=== PATIENT | female | born 1965 | race African-American/Black ===

== ENCOUNTER 2019-10-31 18:02 | Emergency (ER) | payer MEDICAID, OTHER ==
[~2019-10-31] VITALS: Ht 160 cm; Wt 86.2 kg
[~2019-10-31 18:02] MED LIST: MOBIC7.5 MG ORAL; NKM; OMEPRAZOLE20 M2 ORAL; ZOFRAN4 MG ORAL
[2019-10-31] MEDS ORDERED: Aspirin Baby 81mg ORAL ONE (18:15)
--- NOTE | 2019-10-31 18:30 | Emergency Room Report ---
History of Present Illness General Chief Complaint: Chest Pain Source: Patient Present Illness HPI 53-year-old female with remote history of breast cancer status post mastectomy approximately 8 years ago here with shortness of breath for 11 days. Patient says that she went to another emergency department about 10 days ago and had a chest x-ray" and it showed some fluid in my lungs. They gave me some antibio tics." Patient says that her symptoms have persisted. No fevers, chills, cough, chest pain, palpitations, back pain, abdominal pain, nausea, vomiting, diaphoresis, dysuria, diarrhea. 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 Patient History Last Menstrual Period: none Now: No Nursing Documentation-[facility] Past Medical History: No History, Except For Hx Cancer: Yes - breast cancer Review of Systems All Other Systems: negative except mentioned in HPI Physical Exam Vital Signs Date Time Temp Pulse Resp B/P (MAP) Pulse Ox O2 Delivery O2 Flow Rate FiO2 10/31/19 18:07 98.2 86 20 156/87 (110) 97 Room Air Sp02 EP Interpretation: reviewed, normal General Appearance: no apparent distress, alert, non-toxic Head: normocephalic, atraumatic Eyes: bilateral eye normal inspection, bilateral eye PERRL ENT: hearing grossly normal, normal pharynx, no angioedema, normal voice Neck: full range of motion, supple/symm/no masses Respiratory: chest non-tender, lungs clear, normal breath sounds, speaking full sentences Cardiovascular #1: regular rate, rhythm, no edema Cardiovascular #2: 2+ carotid (R), 2+ carotid (L), 2+ radial (R), 2+ radial (L), 2+ dorsalis pedis (R), 2+ dorsalis pedis (L) Gastrointestinal: normal bowel sounds, non tender, soft, non-distended, no guarding, no rebound Rectal: deferred Genitourinary: normal inspection, no CVA tenderness Musculoskeletal: back normal, normal range of motion, gait/station normal, non- tender Neurologic: alert, motor strength/tone normal, sensory intact, responsive, speech normal Psychiatric: judgement/insight normal, memory normal, mood/affect normal, no suicidal/homicidal ideation Lymphatic: no adenopathy Medical Decision Making Diagnostic Impression: Primary Impression: Pneumonia Additional Impression: Shortness of breath ER Course EKG: NSR, no ischemia, intervals WNL. No ectopy. Rate 80 bpm Rhythm strip: patient monitored for arrhythmias - no malignant dysrhythmias, runs of PVCs, nor pauses noted Wells score for pulmonary embolism: 0. Low risk Chest x-ray: Indication shortness of breath. No cardiomegaly. No bony abnormalities. No free air under the diaphragm. No pleural effusions. Scattered heart borders in the left lower lobe with left lower lobe consolidation Laboratory Tests Test 10/31/19 18:55 White Blood Count 7.4 K/UL (4.8-10.8) Red Blood Count 4.63 M/UL (4.20-5.40) Hemoglobin 12.5 G/DL (12.0-16.0) Hematocrit 37.3 % (37.0-47.0) Mean Corpuscular Volume 81 FL (80-99) Mean Corpuscular Hemoglobin 27.1 PG (27.0-31.0) Mean Corpuscular Hemoglobin Concent 33.6 G/DL (32.0-36.0) Red Cell Distribution Width 14.7 % (11.6-14.8) Platelet Count 250 K/UL (150-450) Mean Platelet Volume 7.3 FL (6.5-10.1) Neutrophils (%) (Auto) 59.8 % (45.0-75.0) Lymphocytes (%) (Auto) 30.1 % (20.0-45.0) Monocytes (%) (Auto) 5.5 % (1.0-10.0) Eosinophils (%) (Auto) 3.5 % (0.0-3.0) H Basophils (%) (Auto) 1.1 % (0.0-2.0) Sodium Level 143 MMOL/L (136-145) Potassium Level 3.8 MMOL/L (3.5-5.1) Chloride Level 105 MMOL/L (98-107) Carbon Dioxide Level 28 MMOL/L (21-32) Anion Gap 11 mmol/L (5-15) Blood Urea Nitrogen 21 mg/dL (7-18) H Creatinine 1.0 MG/DL (0.55-1.30) Estimated Glomerular Filtration Rate > 60 mL/min (>60) Glucose Level 95 MG/DL (74-106) Calcium Level 9.0 MG/DL (8.5-10.1) Total Bilirubin 0.4 MG/DL (0.2-1.0) Aspartate Amino Transferase (AST) 20 U/L (15-37) Alanine Aminotransferase (ALT) 20 U/L (12-78) Alkaline Phosphatase 77 U/L (46-116) Troponin I 0.000 ng/mL (0.000-0.056) Pro-B-Type Natriuretic Peptide 64 pg/mL (0-125) Total Protein 7.9 G/DL (6.4-8.2) Albumin 3.7 G/DL (3.4-5.0) Globulin 4.2 g/dL Albumin/Globulin Ratio 0.9 (1.0-2.7) L 53-year-old female with remote history of breast cancer status post mastectomy 8 years ago, here with mild shortness of breath and dry cough. Patient was h emodynamically stable in the emergency department and had normal vital signs and was afebrile. CBC and CMP were unremarkable. Troponin negative. BNP normal. EKG was unremarkable as well. Patient's chest x-ray however showed obscured heart borders in the region of the left lower lobe with developing left lower lobe infiltrate. Patient says that she has had community-acquired pneumonia in the past and had very similar symptoms at that time. Clinically patient was stable for discharge. She was given a prescription for azithromycin and told to follow-up with her primary care provider or come back to the emergency department if her symptoms worsen. She expressed understanding and was discharged. Last Vital Signs Date Time Temp Pulse Resp B/P (MAP) Pulse Ox O2 Delivery O2 Flow Rate FiO2 10/31/19 18:07 98.2 86 20 156/87 (110) 97 Room Air Disposition: HOME, SELF-CARE Scripts Azithromycin* (ZITHROMAX*) 250 Mg Tablet 250 MG ORAL DAILY, #6 TAB 0 Refills Take two tables once daily for 1 day, then one tablet once daily for 4 days. Prov: Jamal Clarke M.D. 10/31/19 Jamal Clarke M.D. Oct 31, 2019 18:30
--- NOTE | 2019-10-31 18:30 | NUR ---
ED Nurse Note: Patient presents to ER due to left chest pain, patient unable to describe the pain, radiating to left arm, axilla area for the past few day with slight SOB with physical exertion. Patient also c/o back pain. Reports no N/V or cough or fever or chills. Patient awake, alert, oriented x 4. Regular, unlabored breathing noted. Patient able to speak full sentence and denies any swelling on BLE. Patient is not on any meds at this time. HX of right breast CA with mastectomy and left breast reduction. Placed patient on mainframe programmer analyst. Bed in lowest position.
[2019-10-31 19:10] VITALS: BP 133/71
--- NOTE | 2019-10-31 19:10 | NUR ---
Note renea in EDM - 10/31/19 at 1939 by CEDRICK ED Nurse Note: Report given to DEL Paredes. Patient awake, no facial grimacing or guarding noted. IV Vancomycin infusing via left forearm 22g. IV remained intact without redness, swelling.
--- NOTE | 2019-10-31 19:10 | NUR ---
ED Nurse Note: Report received from DEL Berkowitz. Patient is in bed with her eyes closed; does not appear to be in any distress at this time. Vital signs are stable. Will continue to monitor. Safety measures in place.
--- NOTE | 2019-10-31 19:10 | NUR ---
ED Nurse Note: Report given to DEL Paredes. Patient in bed, on apple sorter. No facial grimacing or guarding noted. Bed in lowest position .
[2019-10-31 19:32] LABS: BASOPHILS % (AUTO) 1.1 % (0.0-2.0); EOSINOPHILS % (AUTO) 3.5 % (0.0-3.0); HEMATOCRIT 37.3 % (37.0-47.0); HEMOGLOBIN 12.5 G/DL (12.0-16.0); LYMPHOCYTES % (AUTO) 30.1 % (20.0-45.0); MEAN CORPUSCULAR VOLUME 81 FL (80-99); MONOCYTES % (AUTO) 5.5 % (1.0-10.0); NEUTROPHILS % (AUTO) 59.8 % (45.0-75.0); PLATELET COUNT 250 K/UL (150-450); RED BLOOD COUNT 4.63 M/UL (4.20-5.40); RED CELL DISTRIBUTION WIDTH 14.7 % (11.6-14.8); WHITE BLOOD COUNT 7.4 K/UL (4.8-10.8)
[2019-10-31 19:40] LABS: ANION GAP 11 mmol/L (5-15); BLOOD UREA NITROGEN 21 mg/dL (7-18); CARBON DIOXIDE 28 MMOL/L (21-32); CHLORIDE 105 MMOL/L (98-107); POTASSIUM 3.8 MMOL/L (3.5-5.1); SODIUM 143 MMOL/L (136-145)
[2019-10-31 19:45] LABS: ALANINE AMINOTRANSFERASE 20 U/L (12-78); ALBUMIN 3.7 G/DL (3.4-5.0); ALBUMIN/GLOBULIN RATIO 0.9 (1.0-2.7); ALKALINE PHOSPHATASE 77 U/L (46-116); ASPARTATE AMINO TRANSFERASE 20 U/L (15-37); BILIRUBIN,TOTAL 0.4 MG/DL (0.2-1.0)
[2019-10-31] MEDS ORDERED: ZITHROMAX250 MG ORAL (20:01)
[2019-10-31 20:20] VITALS: BP 108/72
--- NOTE | 2019-10-31 20:20 | NUR ---
ER DISCHARGE NOTE: Patient is cleared to be discharged per ERMD, pt is aox4, on room air, with stable vital signs. pt was given dc and prescription instructions, pt was able to verbalize understanding, pt id band and iv site removed without complications. pt is able to ambulate with steady gait. pt took all belongings.
--- NOTE | 2019-11-01 11:09 | Diagnostic Imaging Report ---
Indication: Chest pain Technique: One view of the chest Comparison: none Findings: Lungs and pleural spaces are clear. Heart size is normal. There is minimal atelectasis at the left lateral lung base Impression: No acute process
--- NOTE | 2019-11-01 17:42 | Cardiology Report ---
APPROVED REPORT EKG Measurement Heart [id number] <Conclusion> Normal sinus rhythm Normal ECG
== END 2019-10-31 20:20 | disposition home or self-care (01) ==
LOC: EMR 18:20
DX: J18.9 Pneumonia, unspecified organism (principal); R06.02 Shortness of breath; Z85.3 Personal history of malignant neoplasm of breast; Z91.040 Latex allergy status; Z90.10 Acquired absence of unspecified breast and nipple
CPT/HCPCS: 36415; 71045; 80053; 83880; 84484; 85025; 93005; Z7502; 99283

== ENCOUNTER 2019-11-14 19:16 | Observation (INO) | payer MEDICAID, OTHER ==
[~2019-11-14] VITALS: Ht 160 cm; Wt 95.0 kg
[~2019-11-14 19:16] MED LIST changes: +ZITHROMAX250 MG ORAL
[2019-11-14 19:20] VITALS: BP 164/85
--- NOTE | 2019-11-14 19:20 | NUR ---
ED Nurse Note: Pt ambulated to ED from home c/o of L sided substernal 08/18 cp with dizziness for several days. Pain radiates to R shoulder. Pt denies N/V at this time. Pt was seen several days ago for the same symptoms, pt is A&Ox4, VSS, pt placed on car inspector, ERMD at bedside, EKG in process
--- NOTE | 2019-11-14 19:55 | Diagnostic Imaging Report ---
EXAM: XR Chest, 1 View CLINICAL HISTORY: CP TECHNIQUE: Frontal view of the chest. COMPARISON: 10/31/2019. FINDINGS: Lungs: The lungs are well aerated. Minimal subsegmental atelectasis at the left lung base. Pleural space: No pleural effusion. No pneumothorax. Heart: Cardiomediastinal silhouette unremarkable. Mediastinum: See above. Bones/joints: Osteopenia. Soft tissues: Surgical clips in the right axilla. IMPRESSION: 1. Minimal subsegmental atelectasis at the left lung base. 2. Osteopenia.
[2019-11-14] MEDS ORDERED: Omnipaque 350 100ml vial INJ PRN (20:00)
--- NOTE | 2019-11-14 20:00 | Emergency Room Report ---
History of Present Illness General Chief Complaint: Chest Pain Source: Patient Present Illness HPI 54-year-old female presents with achy chest pain left-sided radiates to her left upper back, achy in nature no aggravating factors no alleviating factors severity is moderate, constant she does endorse some accompanying shortness of breath, patient states she was recently diagnosed with pneumonia patient present s for evaluation and treatment Allergies: Coded Allergies: LATEX (Verified Allergy, Unknown, 10/31/19) NO KNOWN ALLERGIES (Unverified Allergy, Unknown, 01/02/15) COVID-19 Screening Contact w/high risk pt: No Experienced COVID-19 symptoms?: No 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 COVID-19 Screening: Negative COVID-19 COVID-19 Testing Source: last week Patient History Past Medical History: see triage record Reviewed Nursing Documentation: PMH: Agreed; PSxH: Agreed Nursing Documentation-PMH Hx Cancer: Yes - breast cancer Review of Systems All Other Systems: negative except mentioned in HPI Physical Exam Vital Signs Date Time Temp Pulse Resp B/P (MAP) Pulse Ox O2 Delivery O2 Flow Rate FiO2 11/14/19 19:18 98.1 84 18 164/85 (111) 99 Room Air Sp02 EP Interpretation: reviewed, normal General Appearance: well appearing, no apparent distress, alert Head: normocephalic, atraumatic Eyes: bilateral eye PERRL, bilateral eye EOMI ENT: uvula midline, moist mucus membranes Neck: supple, thyroid normal, supple/symm/no masses Respiratory: lungs clear, no respiratory distress, no retraction, no accessory muscle use Cardiovascular #1: normal peripheral pulses, regular rate, rhythm, no edema, no gallop, no murmur Gastrointestinal: non tender, soft, no guarding, no rebound Musculoskeletal: normal inspection Neurologic: alert, oriented x3 Psychiatric: mood/affect normal Skin: no rash, warm/dry Medical Decision Making Diagnostic Impression: Primary Impression: Chest pain Qualified Codes: R07.9 - Chest pain, unspecified ER Course 54-year-old female history of breast cancer presents with vague chest discomfort differential diagnosis includes ACS pulmonary embolism given history of breast cancer, gastritis Patient already took aspirin prior to coming to the ED patient took 3 baby aspirin's Patient with a negative troponin, CTA negative for acute pulmonary embolism Patient admitted to Dr. Fung Laboratory Tests Test 11/14/19 19:55 White Blood Count 8.7 K/UL (4.8-10.8) Red Blood Count 4.82 M/UL (4.20-5.40) Hemoglobin 13.1 G/DL (12.0-16.0) Hematocrit 38.8 % (37.0-47.0) Mean Corpuscular Volume 80 FL (80-99) Mean Corpuscular Hemoglobin 27.3 PG (27.0-31.0) Mean Corpuscular Hemoglobin Concent 33.9 G/DL (32.0-36.0) Red Cell Distribution Width 14.4 % (11.6-14.8) Platelet Count 282 K/UL (150-450) Mean Platelet Volume 7.3 FL (6.5-10.1) Neutrophils (%) (Auto) 60.7 % (45.0-75.0) Lymphocytes (%) (Auto) 31.0 % (20.0-45.0) Monocytes (%) (Auto) 3.5 % (1.0-10.0) Eosinophils (%) (Auto) 4.1 % (0.0-3.0) H Basophils (%) (Auto) 0.7 % (0.0-2.0) Prothrombin Time 10.4 SEC (9.30-11.50) Prothrombin Time INR 0.9 (0.9-1.1) Activated Partial Thromboplast Time 25 SEC (23-33) Sodium Level 138 MMOL/L (136-145) Potassium Level 3.9 MMOL/L (3.5-5.1) Chloride Level 102 MMOL/L (98-107) Carbon Dioxide Level 31 MMOL/L (21-32) Anion Gap 6 mmol/L (5-15) Blood Urea Nitrogen 18 mg/dL (7-18) Creatinine 1.1 MG/DL (0.55-1.30) Estimated Glomerular Filtration Rate > 60 mL/min (>60) Glucose Level 99 MG/DL (74-106) Calcium Level 9.5 MG/DL (8.5-10.1) Total Bilirubin 0.4 MG/DL (0.2-1.0) Aspartate Amino Transferase (AST) 12 U/L (15-37) L Alanine Aminotransferase (ALT) 24 U/L (12-78) Alkaline Phosphatase 82 U/L (46-116) Troponin I 0.000 ng/mL (0.000-0.056) Pro-B-Type Natriuretic Peptide 68 pg/mL (0-125) Total Protein 7.6 G/DL (6.4-8.2) Albumin 3.8 G/DL (3.4-5.0) Globulin 3.8 g/dL Albumin/Globulin Ratio 1.0 (1.0-2.7) Lipase 144 U/L (73-393) Microbiology Date/Time Source Procedure Growth Status 11/14/19 19:55 Nasopharynx SARS-CoV-2 RdRp Gene Assay - Final Complete EKG Diagnostic Results Troponin ordered: Yes When was troponin ordered?: Nov 14, 2019 - 1928 Rhythm Strip Diag. Results Rhythm Strip Time: 19:59 EP Interpretation: yes Rate: 80 Rhythm: NSR, no PVC's, no ectopy Chest X-Ray Diagnostic Results Chest X-Ray Diagnostic Results : Chest X-Ray Ordered: Yes # of Views/Limited/Complete: 1 View Indication: Chest Pain EP Interpretation: Yes Interpretation: no consolidation, no effusion, no pneumothorax, no acute cardiopulmonary disease Impression: No acute disease Electronically Signed by: Luciano Byers MD CT/MRI/US Diagnostic Results CT/MRI/US Diagnostic Results : Impression Procedure: CTA Chest w Contrast EXAM: CT Angiography Chest With Intravenous Contrast CLINICAL HISTORY: Chest pain. TECHNIQUE: Axial computed tomographic angiography images of the chest with intravenous contrast. CTDI is 51.7 mGy and DLP is 364.6 mGy-cm. One or more of the following dose reduction techniques were used: automated exposure control, adjustment of the mA and/or kV according to patient size, use of iterative reconstruction technique. MIP reconstructed images were created and reviewed. COMPARISON: 11/14/2019. FINDINGS: Pulmonary arteries: No central pulmonary embolism. Aorta: Thoracic aorta is unremarkable. No thoracic aortic aneurysm. Lungs: Evaluation of the right pulmonary parenchyma reveals subsegmental atelectasis posteriorly at the right lung base. Subsegmental atelectasis posteriorly at the left lung base. Subsegmental atelectasis within the lingular region. Minimal areas of scarring at the right lung base. The airways patent. No mass. Pleural space: Unremarkable. No significant effusion. No pneumothorax. Heart: Heart is normal in size. No significant pericardial effusion. No evidence of RV dysfunction. Mediastinum: Probable distal esophagitis. Thyroid: Thyroid gland is unremarkable. Bones/joints: The sternum is unremarkable. No acute fracture. No dislocation. Soft tissues: Right breast prosthesis is noted in place. Lymph nodes: Unremarkable. No enlarged lymph nodes. Liver: Diffuse fatty infiltration of the liver. Adrenals: 0.8 cm probable left adrenal adenoma. Stomach and bowel: Present ingested material in the stomach. Alignment of the thoracic spine is unremarkable. IMPRESSION: 1. No central peripheral pulmonary emboli detected. 2. Presumed subsegmental atelectasis in the lingular region. Dictated By: Azael Daily M.D. Electronically Signed By:Azael Daily M.D. Signed Date/Time11/14/191 CC: Luciano Byers [id number] 0 Last Vital Signs Date Time Temp Pulse Resp B/P (MAP) Pulse Ox O2 Delivery O2 Flow Rate FiO2 11/14/19 19:18 98.1 84 18 164/85 (111) 99 Room Air Disposition: ADMITTED INPATIENT Condition: Stable Luciano Byers MD Nov 14, 2019 20:00
[2019-11-14 20:11] LABS: BASOPHILS % (AUTO) 0.7 % (0.0-2.0); EOSINOPHILS % (AUTO) 4.1 % (0.0-3.0); HEMATOCRIT 38.8 % (37.0-47.0); HEMOGLOBIN 13.1 G/DL (12.0-16.0); MEAN CORPUSCULAR VOLUME 80 FL (80-99); MONOCYTES % (AUTO) 3.5 % (1.0-10.0); NEUTROPHILS % (AUTO) 60.7 % (45.0-75.0); PLATELET COUNT 282 K/UL (150-450); RED BLOOD COUNT 4.82 M/UL (4.20-5.40); RED CELL DISTRIBUTION WIDTH 14.4 % (11.6-14.8); WHITE BLOOD COUNT 8.7 K/UL (4.8-10.8)
[2019-11-14 20:29] LABS: INR 0.9 (0.9-1.1)
--- NOTE | 2019-11-14 20:30 | NUR ---
Note reena in ED - 11/14/19 at 2318 by KDEARING TRANSFER TO FLOOR: Patient transferred to as ordered, per DR Fung. Report given to DEL Rivas. Belongings and medications given to . Family and or S/O informed of transfer.
[2019-11-14 20:50] LABS: ANION GAP 6 mmol/L (5-15); BLOOD UREA NITROGEN 18 mg/dL (7-18); CALCIUM 9.5 MG/DL (8.5-10.1); CARBON DIOXIDE 31 MMOL/L (21-32); CHLORIDE 102 MMOL/L (98-107); CREATININE 1.1 MG/DL (0.55-1.30); POTASSIUM 3.9 MMOL/L (3.5-5.1); SODIUM 138 MMOL/L (136-145)
[2019-11-14 20:56] LABS: ALANINE AMINOTRANSFERASE 24 U/L (12-78); ALBUMIN 3.8 G/DL (3.4-5.0); ALKALINE PHOSPHATASE 82 U/L (46-116); BILIRUBIN,TOTAL 0.4 MG/DL (0.2-1.0)
--- NOTE | 2019-11-14 20:59 | NUR ---
ED Nurse Note: Pt to CT
--- NOTE | 2019-11-14 21:18 | NUR ---
ED Nurse Note: Pt back from CT
[2019-11-14 21:30] VITALS: BP 150/80
--- NOTE | 2019-11-14 21:31 | Diagnostic Imaging Report ---
EXAM: CT Angiography Chest With Intravenous Contrast CLINICAL HISTORY: Chest pain. TECHNIQUE: Axial computed tomographic angiography images of the chest with intravenous contrast. CTDI is 51.7 mGy and DLP is 364.6 mGy-cm. One or more of the following dose reduction techniques were used: automated exposure control, adjustment of the mA and/or kV according to patient size, use of iterative reconstruction technique. MIP reconstructed images were created and reviewed. COMPARISON: 11/14/2019. FINDINGS: Pulmonary arteries: No central pulmonary embolism. Aorta: Thoracic aorta is unremarkable. No thoracic aortic aneurysm. Lungs: Evaluation of the right pulmonary parenchyma reveals subsegmental atelectasis posteriorly at the right lung base. Subsegmental atelectasis posteriorly at the left lung base. Subsegmental atelectasis within the lingular region. Minimal areas of scarring at the right lung base. The airways patent. No mass. Pleural space: Unremarkable. No significant effusion. No pneumothorax. Heart: Heart is normal in size. No significant pericardial effusion. No evidence of RV dysfunction. Mediastinum: Probable distal esophagitis. Thyroid: Thyroid gland is unremarkable. Bones/joints: The sternum is unremarkable. No acute fracture. No dislocation. Soft tissues: Right breast prosthesis is noted in place. Lymph nodes: Unremarkable. No enlarged lymph nodes. Liver: Diffuse fatty infiltration of the liver. Adrenals: 0.8 cm probable left adrenal adenoma. Stomach and bowel: Present ingested material in the stomach. Alignment of the thoracic spine is unremarkable. IMPRESSION: 1. No central peripheral pulmonary emboli detected. 2. Presumed subsegmental atelectasis in the lingular region.
[2019-11-14 21:35] LABS: ASPARTATE AMINO TRANSFERASE 12 U/L (15-37)
--- NOTE | 2019-11-14 22:40 | NUR ---
TRANSFER TO FLOOR: Patient transferred to as ordered, per DR lopez. Report given to DEL uribe. Belongings and medications given to . Family and or S/O informed of transfer.
--- NOTE | 2019-11-14 23:40 | NUR ---
NURSE NOTES: Received patient report from SALEEM Connor RN. Patient shows no signs of distress at the time. She is AO x4. Patient complains of back pain that gets worse when she moves. 06/18. Patient is on room air with no signs of respiratory distress. Patients vitals are within range except for blood pressure which is 168/90. Patient claims not to take any medications at home. IV is intact and patent. There are no signs of erythema, infiltration, or bleeding. Patient has been connected to school bus monitor. Belongings list has been reviewed. Bed is in the lowest position, call light is within reach, side rails up x3. Will continue to monitor. Dr. Fung has been called. Awaiting call back.
[2019-11-15 04:00] VITALS: BP_SYST 143; BP_SYST 173; BP_DIAS 63; BP_DIAS 97
--- NOTE | 2019-11-15 07:35 | NUR ---
NURSE HAND-OFF REPORT: Important Events on Shift:[Patient was admitted. ] Patient Status: [Full code] Diet: [Regular] Pending Orders: [NA] Pending Results/Labs:[NA] Pending MD notification:[Dr. Fung was informed that patient was not given any medications in ER and no medications from home. He still ordered to resume home and ER meds. No new orders given ] Latest Vital Signs: Temperature 98.6 , Pulse 67 , B/P 143 /63 , Respiratory Rate 18 , O2 SAT 98 , Room Air, O2 Flow Rate . Vital Sign Comment: [NA] EKG Rhythm: Sinus Rhythm Rhythm change?: N MD Notified?: - MD Response: Latest En[place] Fall Score: 20 Fall Risk: Low Risk Safety Measures: Call light Within Reach, Bed Alarm Zone 2, Side Rails Side Rails x2, Bed position Low and Locked. Fall Precautions: Yellow Socks Yellow Gown Patient Fall Education Report given to [DEL Valencia].
--- NOTE | 2019-11-15 07:36 | NUR ---
NURSE NOTES: Received report from Evelyn/RN, Observed patient awake, eating breakfast in bed. AAO x4. able to make needs known, denies chest pain at this time. On room air, no acute distress/SOB noted at this time. IV site patent and intact. Bed in low position and locked, Call light within reach. Encouraged to use call light when needed. Bed alarm is on, side rails up x2. Will continue plan of care.
[2019-11-15 08:00] VITALS: BP 140/77
--- NOTE | 2019-11-15 09:32 | History and Physical ---
History of Present Illness General Reason for Hospitalization: Chest Pain Present Illness HPI 54 years old aagf came to ed for chest pain with sob . no palpitation, no n/v, pt had pna 2 weeks received po abx, has minimal cough. Allergies: Coded Allergies: LATEX (Verified Allergy, Unknown, 10/31/19) NO KNOWN ALLERGIES (Unverified Allergy, Unknown, 01/02/15) COVID-19 Screening Contact w/high risk pt: No Experienced COVID-19 symptoms?: No Medication History Scheduled Azithromycin* (Zithromax*), 250 MG ORAL DAILY Patient History Healthcare decision maker Resuscitation status Advanced Directive on File Review of Systems Constitutional: Reports: see HPI Physical Exam General Appearance: alert Lines, tubes and drains: peripheral, PICC HEENT: atraumatic, anicteric, EOMI, no JVD Neck: supple Respiratory/Chest: lungs clear, normal breath sounds Breasts: other - lt mastectomy Cardiovascular/Chest: regular rhythm Abdomen: non tender, soft Extremities: non-tender Skin Exam: warm/dry Neurologic: oriented x 3 Last 24 Hour Vital Signs Date Time Temp Pulse Resp B/P (MAP) Pulse Ox O2 Delivery O2 Flow Rate FiO2 11/15/19 08:00 97.7 80 20 140/77 (98) 98 11/15/19 04:00 98.6 67 18 143/63 (89) 98 11/15/19 04:00 76 11/15/19 01:04 Room Air 11/15/19 00:00 70 11/14/19 22:40 98.0 82 20 150/80 100 Room Air 11/14/19 21:30 98.0 82 20 150/80 100 Room Air 11/14/19 19:20 98.1 89 18 164/85 99 Room Air 11/14/19 19:20 84 18 Room Air 11/14/19 19:18 98.1 84 18 164/85 (111) 99 Room Air Laboratory Tests Test 11/14/19 19:55 11/15/19 00:10 11/15/19 08:15 White Blood Count 8.7 K/UL (4.8-10.8) Red Blood Count 4.82 M/UL (4.20-5.40) Hemoglobin 13.1 G/DL (12.0-16.0) Hematocrit 38.8 % (37.0-47.0) Mean Corpuscular Volume 80 FL (80-99) Mean Corpuscular Hemoglobin 27.3 PG (27.0-31.0) Mean Corpuscular Hemoglobin Concent 33.9 G/DL (32.0-36.0) Red Cell Distribution Width 14.4 % (11.6-14.8) Platelet Count 282 K/UL (150-450) Mean Platelet Volume 7.3 FL (6.5-10.1) Neutrophils (%) (Auto) 60.7 % (45.0-75.0) Lymphocytes (%) (Auto) 31.0 % (20.0-45.0) Monocytes (%) (Auto) 3.5 % (1.0-10.0) Eosinophils (%) (Auto) 4.1 % (0.0-3.0) H Basophils (%) (Auto) 0.7 % (0.0-2.0) Prothrombin Time 10.4 SEC (9.30-11.50) Prothromb Time International Ratio 0.9 (0.9-1.1) Activated Partial Thromboplast Time 25 SEC (23-33) Sodium Level 138 MMOL/L (136-145) Potassium Level 3.9 MMOL/L (3.5-5.1) Chloride Level 102 MMOL/L (98-107) Carbon Dioxide Level 31 MMOL/L (21-32) Anion Gap 6 mmol/L (5-15) Blood Urea Nitrogen 18 mg/dL (7-18) Creatinine 1.1 MG/DL (0.55-1.30) Estimat Glomerular Filtration Rate > 60 mL/min (>60) Glucose Level 99 MG/DL (74-106) Calcium Level 9.5 MG/DL (8.5-10.1) Total Bilirubin 0.4 MG/DL (0.2-1.0) Aspartate Amino Transf (AST/SGOT) 12 U/L (15-37) L Alanine Aminotransferase (ALT/SGPT) 24 U/L (12-78) Alkaline Phosphatase 82 U/L (46-116) Troponin I 0.000 ng/mL (0.000-0.056) 0.000 ng/mL (0.000-0.056) 0.000 ng/mL (0.000-0.056) Pro-B-Type Natriuretic Peptide 68 pg/mL (0-125) Total Protein 7.6 G/DL (6.4-8.2) Albumin 3.8 G/DL (3.4-5.0) Globulin 3.8 g/dL Albumin/Globulin Ratio 1.0 (1.0-2.7) Lipase 144 U/L (73-393) Microbiology Date/Time Source Procedure Growth Status 11/14/19 19:55 Nasopharynx SARS-CoV-2 RdRp Gene Assay - Final Complete Height (Feet): 5 Height (Inches): 3.00 Weight (Pounds): 185 Medications Current Medications Medications (Trade) Dose Ordered Sig/Fede Route PRN Reason Start Time Stop Time Status Last Admin Dose Admin Iohexol (Omnipaque 350 100ml) 100 ml NOW PRN INJ Radiology Procedure 11/14/19 20:00 11/16/19 19:59 Zolpidem Tartrate (Ambien) 5 mg HSPRN PRN ORAL Insomnia 11/15/19 00:00 11/22/19 00:00 Assessment/Plan Status: doing well Assessment/Plan: 1 acs 2 hx pna 3 hx breast ca 4 hx breast reconstruction r/o mi cardio consult cont current tx Abdulaziz Fung MD Nov 15, 2019 09:32
[2019-11-15 12:00] VITALS: BP 152/84
--- NOTE | 2019-11-15 15:09 | NUR ---
[employer] CM: ADAMARIS Elliott [phone]
--- NOTE | 2019-11-15 15:31 | NUR ---
CASE MANAGEMENT: REVIEW 54 YEAR OLD FEMALE PRESENTED TO ED FROM HOME CC: LEFT UPPER BACK PAIN . CHEST PAIN . SOB SI: ACS . r/o NC T 98.1 HR 84 RR 18 BP 164/85 SAT 99% ROOM AIR WBC 8.7 H/H 13.1/38.8 AST 12 IS: RAPID COVID CARDIO CONSULTED TROP SERIES PENDING PATIENT ADMITTED TO TELEMETRY UNIT 11/14/2019 DCP: PATIENT IS FROM HOME
[2019-11-15 16:00] VITALS: BP 158/92
--- NOTE | 2019-11-15 16:50 | Cardiac Electrophysiology PN ---
Subjective Subjective [id number] Objective Last 24 Hour Vital Signs Date Time Temp Pulse Resp B/P (MAP) Pulse Ox O2 Delivery O2 Flow Rate FiO2 11/15/19 16:00 98.0 87 19 158/92 (114) 97 11/15/19 12:00 69 11/15/19 12:00 99.5 74 20 152/84 (106) 98 11/15/19 09:00 Room Air 11/15/19 08:00 82 11/15/19 08:00 97.7 80 20 140/77 (98) 98 11/15/19 04:00 98.6 67 18 143/63 (89) 98 11/15/19 04:00 76 11/15/19 01:04 Room Air 11/15/19 00:00 70 11/14/19 22:40 98.0 82 20 150/80 100 Room Air 11/14/19 21:30 98.0 82 20 150/80 100 Room Air 11/14/19 19:20 98.1 89 18 164/85 99 Room Air 11/14/19 19:20 84 18 Room Air 11/14/19 19:18 98.1 84 18 164/85 (111) 99 Room Air Laboratory Tests Test 11/14/19 19:55 11/15/19 00:10 11/15/19 08:15 11/15/19 16:00 White Blood Count 8.7 K/UL (4.8-10.8) Red Blood Count 4.82 M/UL (4.20-5.40) Hemoglobin 13.1 G/DL (12.0-16.0) Hematocrit 38.8 % (37.0-47.0) Mean Corpuscular Volume 80 FL (80-99) Mean Corpuscular Hemoglobin 27.3 PG (27.0-31.0) Mean Corpuscular Hemoglobin Concent 33.9 G/DL (32.0-36.0) Red Cell Distribution Width 14.4 % (11.6-14.8) Platelet Count 282 K/UL (150-450) Mean Platelet Volume 7.3 FL (6.5-10.1) Neutrophils (%) (Auto) 60.7 % (45.0-75.0) Lymphocytes (%) (Auto) 31.0 % (20.0-45.0) Monocytes (%) (Auto) 3.5 % (1.0-10.0) Eosinophils (%) (Auto) 4.1 % (0.0-3.0) H Basophils (%) (Auto) 0.7 % (0.0-2.0) Prothrombin Time 10.4 SEC (9.30-11.50) Prothromb Time International Ratio 0.9 (0.9-1.1) Activated Partial Thromboplast Time 25 SEC (23-33) Sodium Level 138 MMOL/L (136-145) Potassium Level 3.9 MMOL/L (3.5-5.1) Chloride Level 102 MMOL/L (98-107) Carbon Dioxide Level 31 MMOL/L (21-32) Anion Gap 6 mmol/L (5-15) Blood Urea Nitrogen 18 mg/dL (7-18) Creatinine 1.1 MG/DL (0.55-1.30) Estimat Glomerular Filtration Rate > 60 mL/min (>60) Glucose Level 99 MG/DL (74-106) Calcium Level 9.5 MG/DL (8.5-10.1) Total Bilirubin 0.4 MG/DL (0.2-1.0) Aspartate Amino Transf (AST/SGOT) 12 U/L (15-37) L Alanine Aminotransferase (ALT/SGPT) 24 U/L (12-78) Alkaline Phosphatase 82 U/L (46-116) Troponin I 0.000 ng/mL (0.000-0.056) 0.000 ng/mL (0.000-0.056) 0.000 ng/mL (0.000-0.056) 0.000 ng/mL (0.000-0.056) Pro-B-Type Natriuretic Peptide 68 pg/mL (0-125) Total Protein 7.6 G/DL (6.4-8.2) Albumin 3.8 G/DL (3.4-5.0) Globulin 3.8 g/dL Albumin/Globulin Ratio 1.0 (1.0-2.7) Lipase 144 U/L (73-393) Microbiology Date/Time Source Procedure Growth Status 11/14/19 19:55 Nasopharynx SARS-CoV-2 RdRp Gene Assay - Final Complete Deric Wood MD Nov 15, 2019 16:50
--- NOTE | 2019-11-15 16:59 | Cardiology Report ---
APPROVED REPORT EKG Measurement Heart [id number] <Conclusion> Normal sinus rhythm Nonspecific ST abnormality Abnormal ECG
[2019-11-15] MEDS ORDERED: Lexiscan 0.4mg/5ml syringe IV PRN (17:00)
--- NOTE | 2019-11-15 18:45 | Consultation ---
DATE OF CONSULTATION: 11/15/2019 CARDIOLOGY CONSULTATION CONSULTING PHYSICIAN: Deric Wood MD REFERRING PHYSICIAN: Abdulaziz Fung MD REASON FOR CONSULTATION: Chest pain. HISTORY OF PRESENT ILLNESS: Patient is a 54-year-old lady with history of pneumonia in the past, presented to the emergency room with chest pain, left-sided radiation to the upper neck. Patient did not have any nausea, vomiting, or diaphoresis. Patient has some shortness of breath. Blood pressure in the ER was 164/85 with a pulse of 84, respirations of 18. Patient's troponin was negative, but a Cardiology consultation was obtained for further evaluation. REVIEW OF SYSTEMS: Negative other than what was mentioned in history of present illness. PAST MEDICAL HISTORY: As mentioned above. FAMILY HISTORY: Noncontributory. SOCIAL HISTORY: She lives at home. Patient drinks alcohol. Does not smoke or use any drugs. PHYSICAL EXAMINATION: VITAL SIGNS: Show blood pressure of 158/92, pulse 87, respirations 18, she is afebrile. HEAD AND NECK: Showed no JVD. LUNGS: Clear. CARDIOVASCULAR: Shows regular S1 and S2 with no gallop or murmur. ABDOMEN: Soft. EXTREMITIES: No pitting edema. LABORATORY AND DIAGNOSTIC DATA: Labs show white count of 8.7, hemoglobin 13, hematocrit 38, and platelet count 282. Sodium is 138, potassium 3.9, BUN of 18, creatinine 1.1. Troponin negative x3. BNP is 68. ASSESSMENT AND PLAN: 1. Chest pain. Patient already ruled out for myocardial infarction by serial cardiac enzymes. Her chest CT angiogram showed no evidence of pulmonary embolism or aortic dissection. We will proceed with echocardiogram as well as nuclear stress test for further evaluation. 2. Hypertension. Start the patient on lisinopril 10 mg b.i.d. 3. History of pneumonia. 4. History of breast cancer and breast reconstruction. Thank you very much for allowing me to participate in the care of this patient. Please do not hesitate to contact me for any questions regarding my evaluation. Deric Wood M.D. DR: LILIANA JOB#: [id number] CC:
--- NOTE | 2019-11-15 19:10 | NUR ---
NURSE HAND-OFF REPORT: Important Events on Shift:NA Patient Status: Stable Diet: Regular/ NPO at midnight Pending Orders: Lexiscan Pending Results/Labs:Morning labs Pending MD notification:NA Latest Vital Signs: Temperature 98.0 , Pulse 77 , B/P 158 /92 , Respiratory Rate 19 , O2 SAT 97 , Room Air, O2 Flow Rate . Vital Sign Comment: Stable EKG Rhythm: Sinus Rhythm Rhythm change?: N MD Notified?: - MD Response: Latest Ennis Fall Score: 20 Fall Risk: Low Risk Safety Measures: Call light Within Reach, Bed Alarm Zone 1, Side Rails Side Rails x2, Bed position Low and Locked. Fall Precautions: Door Sign Patient Fall Education Report given to Jimmie/DEL.
--- NOTE | 2019-11-15 19:11 | NUR ---
NURSE NOTES: Received hand-off report from DEL Valencia. Patient in stable condition, resting in semi-fowlers, breathing even and unlabored, on room air. Alert and oriented to baseline(x4). Left antecubital 20g intact, saline locked, patent, flushing well, no pain, no tenderness, no leaking, no redness. Denies chest pain / pressure at this time. Reminded patient that she needs to be NPO after midnight for Lexiscan 11/15. Bed in lowest and locked position, bed wheels locked, call light within reach, bed alarm on.
[2019-11-15 20:00] VITALS: BP 140/75
[2019-11-15] MEDS: Zolpidem 5mg tab ORAL PRN (21:10)
[2019-11-16] VITALS: BP 145/91
[2019-11-16 04:00] VITALS: BP 138/78
--- NOTE | 2019-11-16 07:01 | NUR ---
NURSE HAND-OFF REPORT: Important Events on Shift:Needs to be cleared by cardio to be discharge. Patient Status: Stable Diet: Regular Pending Orders: Discharge once cleared by cardio Pending Results/Labs:NA Pending MD notification:NA Latest Vital Signs: Temperature 98.1 , Pulse 78 , B/P 142 /85 , Respiratory Rate 18 , O2 SAT 98 , Room Air, O2 Flow Rate . Vital Sign Comment: Stable EKG Rhythm: Sinus Rhythm Rhythm change?: N MD Notified?: - MD Response: Latest Ennis Fall Score: 20 Fall Risk: Low Risk Safety Measures: Call light Within Reach, Bed Alarm Zone 1, Side Rails Side Rails x2, Bed position Low and Locked. Fall Precautions: Door Sign Patient Fall Education Report given to Jimmie/DEL.
--- NOTE | 2019-11-16 07:02 | NUR ---
NURSE NOTES: Received report from Jimmie/RN, Observed patient awake, lying semi-nieto's in bed., resting comfortably. AAO x4. able to make needs known, denies pain at this time. On room air, no acute distress/SOB noted at this time. Breathing even and unlabored. IV site patent and intact. Bed in low position and locked, Call light within reach. Encouraged to use call light when needed. Bed alarm is on with side rails up x2. Will continue plan of care.
--- NOTE | 2019-11-16 07:04 | NUR ---
NURSE HAND-OFF REPORT: Important Events on Shift: NPO midnight; Lexiscan today Patient Status: full code, stable condition Diet: NPO Pending Orders: Pending Results/Labs: Pending MD notification: Latest Vital Signs: Temperature 97.2 , Pulse 73 , B/P 138 /78 , Respiratory Rate 16 , O2 SAT 99 , Room Air, O2 Flow Rate . Vital Sign Comment: EKG Rhythm: Sinus Rhythm Rhythm change?: N MD Notified?: - MD Response: Latest Ennis Fall Score: 20 Fall Risk: Low Risk Safety Measures: Call light Within Reach, Bed Alarm Zone 1, Side Rails Side Rails x2, Bed position Low and Locked. Fall Precautions: Door Sign Patient Fall Education Report given to DEL Valencia.
[2019-11-16 08:00] VITALS: BP 165/92
--- NOTE | 2019-11-16 09:25 | Pulmonology Progress Note ---
Subjective Allergies: Coded Allergies: LATEX (Verified Allergy, Unknown, 10/31/19) NO KNOWN ALLERGIES (Unverified Allergy, Unknown, 01/02/15) Subjective asked to evaluate overall no sob has chest discomfort CTPA reviewed Objective Last 24 Hour Vital Signs Date Time Temp Pulse Resp B/P (MAP) Pulse Ox O2 Delivery O2 Flow Rate FiO2 11/16/19 09:22 160/95 11/16/19 08:00 98.1 93 18 165/92 (116) 97 11/16/19 04:00 73 11/16/19 04:00 97.2 73 16 138/78 (98) 99 11/16/19 00:00 97.7 80 16 145/91 (109) 97 11/16/19 00:00 80 11/15/19 21:00 Room Air 11/15/19 20:00 73 11/15/19 20:00 98.2 73 16 140/75 (96) 99 11/15/19 16:00 77 11/15/19 16:00 98.0 87 19 158/92 (114) 97 11/15/19 12:00 69 11/15/19 12:00 99.5 74 20 152/84 (106) 98 Intake and Output 11/15/19 11/16/19 18:59 06:59 Intake Total 500 ml Balance 500 ml Intake Oral 500 ml # Voids 4 2 Objective WDWN NAD clear breath sounds bilaterally without rhonchi or wheeze [id number] without MRG NABS nontender no HSM no CCE nonfocal Microbiology Date/Time Source Procedure Growth Status 11/14/19 19:55 Nasopharynx SARS-CoV-2 RdRp Gene Assay - Final Complete Laboratory Tests 11/15/19 16:00: Troponin I 0.000 Current Medications Medications (Trade) Dose Ordered Sig/Fede Route PRN Reason Start Time Stop Time Status Last Admin Dose Admin Iohexol (Omnipaque 350 100ml) 100 ml NOW PRN INJ Radiology Procedure 11/14/19 20:00 11/16/19 19:59 Lisinopril (ZestriL) 10 mg DAILY ORAL 11/16/19 09:30 12/16/19 09:29 11/16/19 09:22 Regadenoson (Lexiscan) 0.4 mg ONCE PRN IV STRESS TEST 11/15/19 17:00 11/17/19 23:59 Zolpidem Tartrate (Ambien) 5 mg HSPRN PRN ORAL Insomnia 11/15/19 00:00 11/22/19 00:00 11/15/19 21:10 Assessment/Plan Assessment/Plan CTPA negative PE atelectasis CP possible ACS breast cancer history PLAN venous US echo oxygen as needed stress test cards noted will follow up impression, plan, and exam edited and reviewed in detail care discussed with Ryan Morel MD Nov 16, 2019 09:25
[2019-11-16] MEDS ORDERED: Lisinopril 10mg tab ORAL SCH (09:30)
[2019-11-16 12:00] VITALS: BP 156/97
--- NOTE | 2019-11-16 12:12 | General Progress Note ---
Subjective Date patient seen: Nov 16, 2019 Allergies: Coded Allergies: LATEX (Verified Allergy, Unknown, 10/31/19) NO KNOWN ALLERGIES (Unverified Allergy, Unknown, 01/02/15) Subjective doing ok no cp Objective Last 24 Hour Vital Signs Date Time Temp Pulse Resp B/P (MAP) Pulse Ox O2 Delivery O2 Flow Rate FiO2 11/16/19 09:22 160/95 11/16/19 09:00 Room Air 11/16/19 08:00 98.1 93 18 165/92 (116) 97 11/16/19 08:00 79 11/16/19 04:00 73 11/16/19 04:00 97.2 73 16 138/78 (98) 99 11/16/19 00:00 97.7 80 16 145/91 (109) 97 11/16/19 00:00 80 11/15/19 21:00 Room Air 11/15/19 20:00 73 11/15/19 20:00 98.2 73 16 140/75 (96) 99 11/15/19 16:00 77 11/15/19 16:00 98.0 87 19 158/92 (114) 97 Intake and Output 11/15/19 11/16/19 19:00 07:00 Intake Total 500 ml Balance 500 ml Intake Oral 500 ml # Voids 4 2 Laboratory Tests 11/15/19 16:00: Troponin I 0.000 Height (Feet): 5 Height (Inches): 3.00 Weight (Pounds): 185 General Appearance: no apparent distress, alert EENT: PERRL/EOMI Neck: supple Cardiovascular: regular rhythm Respiratory/Chest: normal breath sounds Abdomen: non tender, soft Extremities: non-tender Assessment/Plan Status: doing well Assessment/Plan: 1 acs 2 hx pna 3 hx breast ca 4 hx breast reconstruction r/o mi waiting for cardio ennis cont current tx Abdulaziz Fung MD Nov 16, 2019 12:12
--- NOTE | 2019-11-16 13:29 | Cardiac Electrophysiology PN ---
Assessment/Plan Assessment/Plan 1. Chest pain. Patient already ruled out for myocardial infarction by serial cardiac enzymes. Her chest CT angiogram showed no evidence of pulmonary embolism or aortic dissection. Nuclear stress test performed and results pending. EF 60%. 2. Hypertension. On lisinopril 10 mg b.i.d. 3. History of pneumonia. 4. History of breast cancer and breast reconstruction. Subjective Subjective Just underwent nuclear stress test. Results pending. No CP Objective Last 24 Hour Vital Signs Date Time Temp Pulse Resp B/P (MAP) Pulse Ox O2 Delivery O2 Flow Rate FiO2 11/16/19 12:00 69 11/16/19 12:00 97.6 83 20 156/97 (116) 96 11/16/19 09:22 160/95 11/16/19 09:00 Room Air 11/16/19 08:00 98.1 93 18 165/92 (116) 97 11/16/19 08:00 79 11/16/19 04:00 73 11/16/19 04:00 97.2 73 16 138/78 (98) 99 11/16/19 00:00 97.7 80 16 145/91 (109) 97 11/16/19 00:00 80 11/15/19 21:00 Room Air 11/15/19 20:00 73 11/15/19 20:00 98.2 73 16 140/75 (96) 99 11/15/19 16:00 77 11/15/19 16:00 98.0 87 19 158/92 (114) 97 Intake and Output 11/15/19 11/16/19 19:00 07:00 Intake Total 500 ml Balance 500 ml Intake Oral 500 ml # Voids 4 2 Laboratory Tests Test 11/15/19 16:00 Troponin I 0.000 ng/mL (0.000-0.056) Microbiology Date/Time Source Procedure Growth Status 11/14/19 19:55 Nasopharynx SARS-CoV-2 RdRp Gene Assay - Final Complete Objective HEAD AND NECK: Showed no JVD. LUNGS: Clear. CARDIOVASCULAR: Shows regular S1 and S2 with no gallop or murmur. ABDOMEN: Soft. EXTREMITIES: No pitting edema. Deric oWod MD Nov 16, 2019 13:29
[2019-11-16] MEDS: Lisinopril 10mg tab ORAL SCH ×2 (13:54→18:00)
--- NOTE | 2019-11-16 14:29 | NUR ---
CASE MANAGEMENT: REVIEW SI: ACS . T 97.2 HR 73 RR 16 BP 165/92 SAT 96% ROOM AIR AST [address] ANGIOGRAM -- NO EVIDENCE OF PULMONARY EMBOLISM OR AORTIC DISSECTION NUCLEAR STRESS TEST PERFORMED RESULTS PENDING IS: LISINOPRIL 10 MG PO BID CARDIO CONSULTED LEXISCAN IV X1 VENOUS DUPLEX BLE r/o DVT TELEMETRY UNIT STATUS DCP: PATIENT IS FROM HOME
--- NOTE | 2019-11-16 14:42 | Cardiology Report ---
APPROVED REPORT EXAM: Two-dimensional and M-mode echocardiogram with Doppler and color Doppler. INDICATION Chest Pain M-Mode DIMENSIONS IVSd1.0 (0.7-1.1cm)Left Atrium (MM)3.8 (1.6-4.0cm) LVDd3.8 (3.5-5.6cm)Aortic Root2.4 (2.0-3.7cm) PWd1.0 (0.7-1.1cm)Aortic Cusp Exc.1.9 (1.5-2.0cm) IVSs1.5 cmEPSS0.6 (>1.0cm) LVDs2.4 (2.5-4.0cm) PWs1.8 cm <Conclusion> Limited & technically difficult study due to poor apical windows. Normal left ventricular chamber size, systolic function and wall motion to extent visualized. Left ventricular ejection fraction estimated to be 60 %. Study quality precludes accurate assessment of regional wall motion. No evidence of left ventricular hypertrophy. Anterior Echo-free space, may be due to pericardial fat or effusion. All other cardiac chamber sizes are within normal limits. Focal aortic valve sclerosis with adequate cusp excursion. Thickened mitral valve leaflets with normal excursion. Mitral annulus and aortic root calcification. Pulmonic valve not well visualized. Normal tricuspid valve structure. IVC at normal size with physiologic collapse. A color flow and spectral Doppler study was performed and revealed: No aortic regurgitation. Trace mitral regurgitation. Mitral diastolic velocities suggest borderline LV diastolic dysfunction. Mild tricuspid regurgitation. Tricuspid systolic velocities suggests peak right ventricular systolic pressure of 26 mmHg. No pulmonic regurgitation present.
--- NOTE | 2019-11-16 14:52 | Diagnostic Imaging Report ---
Indication: Pain Technique: Grayscale and duplex images of the bilateral upper extremity veins Comparison: none Findings: Bilaterally, grayscale and duplex images demonstrate no evidence of intraluminal thrombus. Normal phasic Doppler waveforms, demonstrating normal augmentation response and no evidence of valvular insufficiency. Impression: Negative
--- NOTE | 2019-11-16 14:53 | Diagnostic Imaging Report ---
Indication: Reason For Exam: DVT Technique: Grayscale and duplex images of the bilateral lower extremity veins Comparison: None Findings: Bilaterally, grayscale and duplex images demonstrate no evidence of intraluminal thrombus. Normal phasic Doppler waveforms, demonstrating normal augmentation response and no evidence of valvular insufficiency. Greater saphenous vein(s) and tibial veins are patent. Normal compressibility. Impression: Negative for evidence of lower extremity deep venous thrombosis bilaterally
[2019-11-16 16:00] VITALS: BP 142/85
--- NOTE | 2019-11-16 16:05 | NUR ---
INSURANCE CLINICALS FAXED TO [facility] [phone] FX [phone]
--- NOTE | 2019-11-16 16:12 | Diagnostic Imaging Report ---
Indications: Chest pain Technique: Single day single isotope protocol utilized. Initially, resting images obtained using IV administration 10.8 millicuries 99M technetium Myoview. Subsequently, patient underwent lexiscan stress testing. See cardiology report for details. During Lexiscan infusion, IV administration 32.5 mCi 99 M technetium Myoview. SPECT and planar images obtained. SPECT images gated to 8 phases of the cardiac cycle were also obtained, and reformatted into cine images for evaluation of ejection fraction. Comparison: none Findings: Per cardiology report, patient experienced no symptoms. Per cardiology report, resting EKG demonstrates normal sinus rhythm. No ST changes noted during infusion. . Imaging demonstrates normal poststress perfusion. No fixed nor reversible post stress perfusion defects demonstrated. Normal left ventricular chamber size.. Calculated post stress ejection fraction 67%. Gated images demonstrate no evidence of focal wall motion abnormality Impression: Nonischemic clinical response to pharmacologic stress, per cardiology report Nonischemic electrocardiographic response to pharmacologic stress, per cardiology report No imaging findings to suggest ischemia, at level of stress achieved. Calculated post stress ejection fraction 67%
--- NOTE | 2019-11-16 19:10 | NUR ---
NURSE NOTES: Received hand-off report from DEL Valencia. Patient alert and orientedx4, breathing even and unlabored, verbalizes needs well, left antecubital 20g IV patent and flushing, no signs of leaking, no redness, no tenderness, no pain, no swelling. Notified Dr. Wood for ok to discharge but MD did not answer.
[2019-11-16 20:00] VITALS: BP 146/81
[2019-11-16] MEDS: Zolpidem 5mg tab ORAL PRN (21:30)
[2019-11-17] VITALS: BP 116/76
[2019-11-17 04:00] VITALS: BP 121/68
--- NOTE | 2019-11-17 06:15 | NUR ---
NURSE NOTES: Called Dr. Wood regarding pending discharge order.
--- NOTE | 2019-11-17 07:00 | NUR ---
NURSE NOTES: Received a cardio clearance to discharge home from Dr. Wood. Will endorse to AM nurse, Richi MATHIS.
--- NOTE | 2019-11-17 07:03 | General Progress Note ---
Subjective Cardiovascular: Denies: no symptoms, chest pain, edema, irregular heart rate, lightheadedness, palpitations, syncope, other Respiratory: Denies: no symptoms, cough, orthopnea, shortness of breath, SOB with excertion, SOB at rest, sputum, stridor, wheezing, other Gastrointestinal/Abdominal: Denies: no symptoms, abdomen distended, abdominal pain, black stools, tarry stools, blood in stool, constipated, diarrhea, difficulty swallowing, nausea, poor appetite, poor fluid intake, rectal bleeding, vomiting, other Genitourinary: Denies: no symptoms, burning, discharge, frequency, flank pain, hematuria, incontinence, pain, urgency, other Neurologic/Psychiatric: Denies: no symptoms, anxiety, depressed, emotional problems, headache, numbness, paresthesia, pre-existing deficit, seizure, tingling, tremors, weakness, other Endocrine: Denies: no symptoms, excessive sweating, flushing, intolerance to cold, intolerance to heat, increased hunger, increased thirst, increased urine, unexplained weight gain, unexplained weight loss, other Allergies: Coded Allergies: LATEX (Verified Allergy, Unknown, 10/31/19) NO KNOWN ALLERGIES (Unverified Allergy, Unknown, 01/02/15) Subjective 11/16 no cp this am, clearance as per cards, dr. Wood, venous duplex neg Objective Last 24 Hour Vital Signs Date Time Temp Pulse Resp B/P (MAP) Pulse Ox O2 Delivery O2 Flow Rate FiO2 11/17/19 04:00 62 11/17/19 04:00 97.7 62 20 121/68 (85) 97 11/17/19 00:00 98.3 68 20 116/76 (89) 100 11/17/19 00:00 68 11/16/19 21:00 Room Air 11/16/19 20:00 81 11/16/19 20:00 98.6 81 20 146/81 (102) 96 11/16/19 18:00 142/85 11/16/19 16:00 78 11/16/19 16:00 98.1 82 18 142/85 (104) 98 11/16/19 13:54 156/97 11/16/19 12:00 69 11/16/19 12:00 97.6 83 20 156/97 (116) 96 11/16/19 09:22 160/95 11/16/19 09:00 Room Air 11/16/19 08:00 98.1 93 18 165/92 (116) 97 11/16/19 08:00 79 Intake and Output 11/16/19 11/17/19 18:59 06:59 Intake Total 240 ml 300 ml Balance 240 ml 300 ml Intake Oral 240 ml 300 ml # Voids 3 2 Height (Feet): 5 Height (Inches): 3.00 Weight (Pounds): 185 Objective EENT: PERRL/EOMI Neck: supple Cardiovascular: regular rhythm Respiratory/Chest: normal breath sounds Abdomen: non tender, soft Extremities: non-tender Assessment/Plan Status: doing well Status Narrative Assessment/Plan Status: doing well Assessment/Plan: 1 chest pain r/o acs 2 hx pna 3 hx breast ca 4 hx breast reconstruction r/o mi waiting for cardio ennis cont current tx duplex neg Casey Herrera MD Nov 17, 2019 07:03
--- NOTE | 2019-11-17 07:05 | NUR ---
NURSE HAND-OFF REPORT: Important Events on Shift: Toluie cleared patient for cardio (discharge sampson) Patient Status: full code, stable condition Diet: regular Pending Orders: Pending Results/Labs: Pending MD notification: Latest Vital Signs: Temperature 97.7 , Pulse 62 , B/P 121 /68 , Respiratory Rate 20 , O2 SAT 97 , Room Air, O2 Flow Rate . Vital Sign Comment: EKG Rhythm: Sinus Rhythm Rhythm change?: N MD Notified?: - MD Response: Latest Ennis Fall Score: 20 Fall Risk: Low Risk Safety Measures: Call light Within Reach, Bed Alarm Zone 1, Side Rails Side Rails x2, Bed position Low and Locked. Fall Precautions: Door Sign Patient Fall Education Report given to DEL Stoddard.
--- NOTE | 2019-11-17 07:30 | NUR ---
NURSE NOTES: Receieved pr from DEL Samuel. Pt A/O x4. No s/s of acute distress. Currently on room air. Pt has discharge orders. Bed in low position, side rails up x2 and call light within reach. Will follow with discharge papers.
[2019-11-17 08:00] VITALS: BP 133/85
--- NOTE | 2019-11-17 08:20 | NUR ---
NURSE NOTES: Gave pt discharge papers to sign, removed saline lock and removed telemetry box. Gave pt discharge education. Walked pt to front of hospital where she was picked up.
--- NOTE | 2019-11-17 08:32 | Pulmonology Progress Note ---
Subjective Allergies: Coded Allergies: LATEX (Verified Allergy, Unknown, 10/31/19) NO KNOWN ALLERGIES (Unverified Allergy, Unknown, 01/02/15) Subjective off oxygen overall no sob negative venous US and lexiscan Objective Last 24 Hour Vital Signs Date Time Temp Pulse Resp B/P (MAP) Pulse Ox O2 Delivery O2 Flow Rate FiO2 11/17/19 04:00 62 11/17/19 04:00 97.7 62 20 121/68 (85) 97 11/17/19 00:00 98.3 68 20 116/76 (89) 100 11/17/19 00:00 68 11/16/19 21:00 Room Air 11/16/19 20:00 81 11/16/19 20:00 98.6 81 20 146/81 (102) 96 11/16/19 18:00 142/85 11/16/19 16:00 78 11/16/19 16:00 98.1 82 18 142/85 (104) 98 11/16/19 13:54 156/97 11/16/19 12:00 69 11/16/19 12:00 97.6 83 20 156/97 (116) 96 11/16/19 09:22 160/95 11/16/19 09:00 Room Air Intake and Output 11/16/19 11/17/19 18:59 06:59 Intake Total 240 ml 300 ml Balance 240 ml 300 ml Intake Oral 240 ml 300 ml # Voids 3 2 Objective WDWN NAD clear breath sounds bilaterally without rhonchi or wheeze [id number] without MRG NABS nontender no HSM no CCE nonfocal Microbiology Date/Time Source Procedure Growth Status 11/14/19 19:55 Nasopharynx SARS-CoV-2 RdRp Gene Assay - Final Complete Current Medications Medications (Trade) Dose Ordered Sig/Fede Route PRN Reason Start Time Stop Time Status Last Admin Dose Admin Lisinopril (ZestriL) 10 mg BID ORAL 11/16/19 13:30 12/16/19 09:29 11/16/19 13:54 Regadenoson (Lexiscan) 0.4 mg ONCE PRN IV STRESS TEST 11/15/19 17:00 11/17/19 23:59 11/16/19 14:39 Zolpidem Tartrate (Ambien) 5 mg HSPRN PRN ORAL Insomnia 11/15/19 00:00 11/22/19 00:00 11/16/19 21:30 Assessment/Plan Assessment/Plan CTPA negative PE atelectasis CP possible ACS breast cancer history PLAN venous US neg off oxygen stress test negative cards noted ok to dc impression, plan, and exam edited and reviewed in detail care discussed with Ryan Morel MD Nov 17, 2019 08:32
--- NOTE | 2019-11-17 09:43 | General Progress Note ---
Subjective Constitutional: Reports: no symptoms HEENT: Reports: no symptoms Allergies: Coded Allergies: LATEX (Verified Allergy, Unknown, 10/31/19) NO KNOWN ALLERGIES (Unverified Allergy, Unknown, 01/02/15) Subjective doing ok no cp Objective Last 24 Hour Vital Signs Date Time Temp Pulse Resp B/P (MAP) Pulse Ox O2 Delivery O2 Flow Rate FiO2 11/17/19 08:00 97.9 80 18 133/85 (101) 98 11/17/19 04:00 62 11/17/19 04:00 97.7 62 20 121/68 (85) 97 11/17/19 00:00 98.3 68 20 116/76 (89) 100 11/17/19 00:00 68 11/16/19 21:00 Room Air 11/16/19 20:00 81 11/16/19 20:00 98.6 81 20 146/81 (102) 96 11/16/19 18:00 142/85 11/16/19 16:00 78 11/16/19 16:00 98.1 82 18 142/85 (104) 98 11/16/19 13:54 156/97 11/16/19 12:00 69 11/16/19 12:00 97.6 83 20 156/97 (116) 96 Intake and Output 11/16/19 11/17/19 18:59 06:59 Intake Total 240 ml 300 ml Balance 240 ml 300 ml Intake Oral 240 ml 300 ml # Voids 3 2 Height (Feet): 5 Height (Inches): 3.00 Weight (Pounds): 185 General Appearance: alert EENT: PERRL/EOMI Neck: supple Cardiovascular: regular rhythm Respiratory/Chest: lungs clear Abdomen: non tender, soft Neurologic: discovery manager II-XII grossly normal Assessment/Plan Status: doing well Assessment/Plan: 1 acs 2 hx pna 3 hx breast ca 4 htn stress test negative dc home fu in office cont htn meds , prescription given Abdulaziz Fung MD Nov 17, 2019 09:43
--- NOTE | 2019-11-17 14:12 | NUR ---
INSURANCE CLINICALS FAXED TO [facility] [phone] FX [phone]
--- NOTE | 2019-11-18 12:38 | Discharge Summary ---
Discharge Summary Discharge Summary _ DATE OF ADMISSION: 11/14/2019 DATE OF DISCHARGE: 11/17/2019 DISCHARGED BY: Dr. Fung REASON FOR ADMISSION: 54 years old female with past medical history of breast cancer, status post mastectomy, presented with left sided , achy chest pain, radiating to the left upper back. Pain reported as constant , moderate in severity with associated shortness of breath. Patient was recently diagnosed with pneumonia and undergone treatment with oral antibiotics . Upon evaluation patient was afebrile . Pulse oximetry was stable on room air . Laboratory work-up revealed no leukocytosis, stable hemoglobin ,hematocrit and platelet count. Stable electrolytes and renal parameters. Glucose 99. Troponin negative, pro BNP 68. EKG revealed sinus rhythm, no acute ischemic changes . Rapid COVID-19 was negative. Chest x-ray revealed no acute cardiopulmonary pathology. CTA chest revealed no central or peripheral pulmonary emboli. Presumed subsegmental atelectasis in the lingular region. Patient subsequently admitted for chest pain CONSULTANTS: chicken vaccinator Dr. Peters pulmonary Dr. Fitzpatrick television reporter/oncologist Dr. Herrera [facility] COURSE: Patient admitted to medical surgical floor. Serial troponin were negative. EKG revealed no acute ischemic changes. Patient was ruled out for acute myocardial infarction. CT angiogram showed no evidence of pulmonary embolism or aortic dissection. Echocardiogram revealed preserved ejection fraction of 60%. No evidence of wall motion abnormality. Myocardial perfusion scan test was nonischemic. Calculated post-stress ejection fraction 67%. Venous duplex bilateral lower extremity revealed no evidence of acute DVT. Blood pressure was managed with SARAHY inhibitor. Pain management was addressed. Supportive care provided. Patient clinically stabilized and was ready for discharge FINAL DIAGNOSES: Chest pain Possible acute coronary syndrome Hypertension Recent pneumonia History of breast cancer and breast reconstruction Atelectasis DISCHARGE MEDICATIONS: See Medication Reconciliation list. DISCHARGE INSTRUCTIONS: Patient was discharged home. Follow-up with a primary care provider in 1 week. I have been assigned to dictate discharge summary for this account. I was not involved in the patient's management. Maris Franz NP Nov 18, 2019 12:38
--- NOTE | 2019-11-20 13:53 | NUR ---
CASE MANAGEMENT: Faxed clinical info (face sheet /DC summary) to [facility] @ [phone]. REF# [id number]
== END 2019-11-17 10:28 | disposition home or self-care (01) ==
LOC: EMR 19:55 → 2E 20:20 → INTOOBSV 20:20 → EDBEDREQ 21:48
DX: R07.9 Chest pain, unspecified (principal); J98.11 Atelectasis; I10 Essential (primary) hypertension; Z91.040 Latex allergy status; Z85.3 Personal history of malignant neoplasm of breast; Z90.10 Acquired absence of unspecified breast and nipple
CPT/HCPCS: 36415; 71045; 71275; 78452; 80053; 83690; 83880; 84484; 85025; 85610; 85730; 93005; 93017; 93306; 93970; A4641; J2785; Q9967; U0002; Z7502; Z7514; 99285; G0378